=== PATIENT | female | born 1970 | race Caucasian/White ===

== ENCOUNTER → 2016-05-28 | Outpatient (CLI) | payer MEDICAID | LOC: FIMAGING 16:21 | PROVIDERS: ATTEND Orthopaedic Surgery | DX: M25.562 Pain in left knee (principal); M23.252 Derangement of posterior horn of lateral meniscus due to old tear or injury, left knee; S72.402G Unspecified fracture of lower end of left femur, subsequent encounter for closed fracture with delayed healing ==

== ENCOUNTER → 2016-08-31 | Outpatient (CLI) | payer MEDICAID | LOC: FIMAGING 18:48 | PROVIDERS: ATTEND Orthopaedic Surgery | DX: M22.42 Chondromalacia patellae, left knee (principal); Z98.890 Other specified postprocedural states ==